=== PATIENT | female | born 2000 | race Asian ===

== ENCOUNTER 2021-11-28 19:24 | Inpatient (IN) ==
[2021-11-28 20:19] LABS: ABS Lymphocytes 1.5 10^3/ul (1.0-4.8); ABS Monocytes 0.4 10^3/ul (0-0.8); ABS Neutrophils 3.3 10^3/ul (1.5-7.7); Eosinophil % 0.7 %; Hematocrit 35 % (35-47); Hemoglobin 11.5 g/dL (12.0-16.0); Lymphocyte % 28.3 %; Mean Corpuscular HGB Conc 33 g/dL (31-36); Mean Corpuscular Hemoglobin 29 pg (27-31); Mean Corpuscular Volume 87 fL (80-97); Mean Platelet Volume 8.3 fL (7.4-10.4); Platelet Count 198 10^3/uL (150-450); Red Blood Count 4.02 10^6 /uL (3.70-4.87); Red Cell Distribution Width 14 % (10-15); White Blood Count 5.3 10^3/uL (3.5-10.8)
[2021-11-28 20:27] LABS: Urine Appearance Clear; Urine Bilirubin Negative (Negative); Urine Blood Negative (Negative); Urine Color Colorless; Urine Glucose Negative (Negative); Urine Ketones Negative (Negative); Urine Nitrite Negative (Negative); Urine Protein Negative (Negative); Urine Specific Gravity 1.002 (1.002-1.030); Urine Urobilinogen Negative (Negative)
[2021-11-28 20:32] LABS: Urine Benzodiazepine Screen None Detected (None Detect); Urine Cannabinoids Screen None Detected (None Detect); Urine Opiates Screen None Detected (None Detect)
[2021-11-28 20:51] LABS: ALT 10 U/L (7-52); AST 18 U/L (13-39); Acetaminophen < 15 mcg/mL; Albumin 4.3 g/dL (3.2-5.2); Albumin/Globulin Ratio 1.6 (1-3); Alcohol, S < 13 mg/dL (<13); Alkaline Phosphatase 60 U/L (35-149); Anion Gap 4 mmol/L (2-11); Blood Urea Nitrogen 9 mg/dL (6-24); CO2 Carbon Dioxide 26 mmol/L (22-32); Calcium 9.4 mg/dL (8.6-10.3); Chloride 106 mmol/L (101-111); Globulin 2.7 g/dL (2-4); Glucose 104 mg/dL (70-100); Potassium 3.7 mmol/L (3.5-5.0); Salicylate < 2.50 mg/dL (<30); Sodium 136 mmol/L (135-145); eGFR CKD-EPI 122.7 (>60)
[2021-11-28 21:06] LABS: TSH Ultra Thyroid Stim Horm 1.05 mcIU/mL (0.34-5.60)
[2021-11-29] MEDS ORDERED: Al Hydrox/Mg Hydrox/Simet LIQ 30 ML UDC PO PRN (00:35)
[2021-11-29 05:36] LABS: HCG Pregnancy < 0.60 mIU/mL
[2021-11-29] MEDS: Vitamin THERAPEUTIC TAB PO SCH (16:09)
[2021-11-30] MEDS: Vitamin THERAPEUTIC TAB PO SCH (09:15)
[2021-11-30] MEDS: Calcium Carb (TUMS) 500 mg CHEW TAB PO PRN (14:12)
[2021-12-01] MEDS: Calcium Carb (TUMS) 500 mg CHEW TAB PO PRN (01:42)
[2021-12-01 07:41] VITALS: BP 93/55
[2021-12-01 08:52] LABS: HDL Cholesterol 105.8 mg/dL
[2021-12-01] MEDS: Vitamin THERAPEUTIC TAB PO SCH (09:57)
== END 2021-12-01 15:15 | disposition home or self-care (01) | DRG 751 ==
LOC: ED 19:24 → BSU 21:15
PROVIDERS: ADMIT Psychiatry & Neurology Psychiatry; ATTEND Student in an Organized Health Care Education/Training Program